=== PATIENT | male | born 1945 | race Caucasian/White ===

== ENCOUNTER 2021-12-13 03:39 | Emergency (ER) | payer MEDICARE ==
[~2021-12-13] VITALS: Ht 177.8 cm; Wt 106.7 kg
--- NOTE | 2021-12-13 03:59 | PHYS DOC ---
Past History Past Medical History: Anemia, CAD, COPD, Hypertension, Kidney Stones, Prostatitis Past Surgical History: Coronary Bypass Surgery General Adult EDM: Chief Complaint: FLANK PAIN HPI: HPI: ".. It not been a great week or two for me.. it started with Zoster..or shingles on the Rt,. side of my chest and abd... and now I am having a kidney stone here on Lt... It started hard tonight.. I ve had stones before.. I usually see Dr. Quezada at [facility] for my stones.." Patient is a 76 year old male who presents with above hx and complaints of Lt flank and abdomen pain which she relates his kidney stone pain. Patient also has shingles on his right flank and abdomen.. Patient normally follows with Dr. Cantu and [facility]. Patient does have plans to follow-up with Dr. Pendleton in the future because his primary care is moving.. Patient has longstanding oxygen dependent COPD. Patient is currently on 2 L oxygen continually. Patient is on chronic prednisone maintenance with slow tapers. Patient currently has tapered to 5 mg a day. Patient does have prostatic hypertrophic changes, prostate cancer tx with radioactive implants and is on daily Flomax.. Pt. has had pancreatitis in past. No recent travel. No significant ill contacts. Patient has had a flu vaccination this season. Has had COVID vaccination but not completed his second booster. Pt. has had pneumovax. At presentation rates his Lt flank pain as severe. Review of Systems: Review of Systems: Constitutional: Denies fever or chills Eyes: Denies change in visual acuity HENT: Denies nasal congestion or sore throat Respiratory: Chronically shortness of breath-O2 maintenance at 2 L currently. Cardiovascular: Denies chest pain or edema GI: Complains of left flank abdominal pain, nausea,. Complains of right flank abdomen pain, vomiting, bloody stools or diarrhea : Denies dysuria Musculoskeletal: Complains of left flank and right flank back pain . Integument: Complains of shingles on right flank Neurologic: Denies headache, focal weakness or sensory changes Endocrine: Denies polyuria or polydipsia Lymphatic: Denies swollen glands Psychiatric: Denies depression or anxiety Family History: Family History: Noncontributory to presentation Current Medications: Current Meds: See nursing for home meds Allergies: Allergies: Antibiotic allergy doxycycline Physical Exam: PE: Constitutional: In acute distress, non-toxic appearance. [] HENT: Normocephalic, atraumatic, bilateral external ears normal, oropharynx moist, no oral exudates, nose normal. [] Eyes: PERRLA, EOMI, conjunctiva normal, no discharge. Blue Neck: Normal range of motion, no tenderness, supple, no stridor. [Surgical scar left-sided neck. Cardiovascular: Tachycardia heart rate regular rhythm, no murmur. PMI to left. Bedside monitor shows a sinus rhythm. Does have occasional PACs and PVCs on monitor. Lungs & Thorax: Bilateral breath sounds equal apex with scattered wheezes on auscultation []. Has midline coronary artery bypass scar. Is on continuous oxygen at 2 L. Abdomen: Bowel sounds decreased, soft, right and left flank tenderness, no masses, no pulsatile masses. [] Patient has right flank zoster over dermatomes T3 and 4. Left flank pain that radiates to his groin Skin: Warm, dry, no erythema, zoster over right T3 and 4 dermatomes Back: Right and left flank tenderness, left flank CVA tenderness. [] Extremities: No tenderness, no cyanosis, no clubbing, ROM intact, no edema. Arthritic changes. No cording. Neurologic: Alert and oriented X 3, moves all extremities on request, has distal sensory,, no focal deficits noted. [] Psychologic: Affect anxious, judgement normal, mood normal. [] EKG: EKG: My interpretation EKG shows a sinus rhythm at 80 bpm. Does have occasional PACs. Does have contour changes. Anterior lateral leads. But no findings of acute STEMI with contralateral changes. Time of reading was approximately 438 hours [] Radiology/Procedures: Radiology/Procedures: [][address] [address] IMAGING REPORT Signed PATIENT: JACOB GUALLPA ACCOUNT: [id number] : 1945 LOCATION: ER AGE: 76 SEX: M EXAM STATUS: REG ER ORD. PHYSICIAN: CHUCKY HOWARD MD REASON: chest and abdomen pain, 'zoster, copd-hyposia and renal colic PROCEDURE: ACUTE ABDOMEN SERIES Study: XR ABDOMEN COMP ACUTE Indication: Chest and abdominal pain. Comparison: Same day CT. Findings: Status post median sternotomy. Surgical clips projecting at the left lower neck. Cerclage wire discontinuity. The cardiomediastinal silhouette is within normal limits for size. Symmetric central vasculature. Aortic calcific atherosclerosis. Emphysema with pleuroparenchymal scarring. Bronchiectasis. No pleural effusion, pneumothorax or lobar consolidation. Benign-appearing focus of sclerosis at the proximal left humerus. Diffuse osteopenia. Nonobstructive bowel gas pattern. Mild volume colonic stool burden. Prostate brachytherapy seeds. Extensive calcific atherosclerosis. Impression: 1. Nonobstructive bowel gas pattern. Small volume colonic stool burden. 2. Advanced emphysematous changes of the lungs with pleuroparenchymal scarring and bronchiectasis. No acute radiographic abnormality of the chest. 3. Diffuse osteopenia and extensive vascular calcifications. Electronically signed by: GUY ANTON MD (12/13/2021 5:45 AM) [facility] DICTATED AND SIGNED BY: GUY ANTON MD DATE: 12/13/21542 CC: CHUCKY HOWARD MD; PCP,UNKNOWN ~ PATIENT: JACOB GUALLPA ACCOUNT: [id number] : 1945 LOCATION: ER AGE: 76 SEX: M EXAM STATUS: REG ER ORD. PHYSICIAN: CHUCKY HOWARD MD REASON: renal colic Lt PROCEDURE: CT ABDOMEN PELVIS WO CONTRAST Study: CT abdomen/pelvis without intravenous contrast Indication: Left renal colic. Comparison: None. Technique: Helical CT imaging performed of the abdomen and pelvis without the use of intravenous contrast. Sagittal and coronal reformats were obtained. One or more of the following individualized dose reduction techniques were utilized for this examination: 1. Automated exposure control 2. Adjustment of the mA and/or kV according to patient size 3. Use of iterative reconstruction technique. Findings: Inherently limited evaluation without intravenous contrast. Calcific coronary artery disease. Tree-in-bud nodularity at the lower lungs background of bronchiectasis and distal airway opacification. Background chronic parenchymal changes. No discrete liver lesion. Within normal limits gallbladder and biliary tree. Partially atrophic pancreas. The spleen is within normal limits for size. No adrenal gland mass. Low-attenuation focus at the lower pole of the right kidney measuring simple cyst density. Millimetric nonobstructing intrarenal stone at the upper aspect of the left kidney. No hydronephrosis on the right or left. Within normal limits bladder. Brachytherapy seeds within an enlarge prostate that measures 5.2 cm transverse. Mild volume colonic stool burden. A few diverticuli. Multilevel cecum extending up towards the right upper quadrant. The appendix is not well-visualized. Nonobstructed small bowel. Limited assessment of the stomach on account of underdistention. No gastric wall emphysema. Extensive calcific atherosclerosis. Short segment mild aneurysmal dilatation of the infrarenal abdominal aorta measuring 3 cm AP. Common iliac artery stents. Partially imaged surgical changes along the proximal superficial femoral arteries. There may be a relevant SFA stenosis proximally on the left, image 123 series 4. No lymphadenopathy. No free fluid or pneumoperitoneum. Very small fat-containing umbilical hernia. Scattered chronic osseous findings to include borderline grade 2 anterolisthesis of L5 on S1 in the setting of chronic bilateral pars defect. Expectedly there is severe neural foraminal stenosis at this level. Osteopenia. Impression: 1. Millimetric nonobstructing intrarenal stone at the upper pole of the left kidney. No hydronephrosis on the right or left to help explain reported renal colic. 2. Advanced chronic parenchymal changes at the lower lungs. Tree-in-bud nodularity, bronchiectasis and bilateral lower lobe distal airway opacification. The findings could be related to chronic aspiration or bronchitis. 3. Severe calcific atherosclerosis. Short segment mild aneurysmal dilatation of the infrarenal abdominal aorta measuring up to 3 cm AP. Possible clinically relevant stenosis at the proximal left SFA. 4. Additional chronic observations discussed in the body of the report to include calcific coronary artery disease and spondylolysis with spondylolisthesis at L5-S1. Electronically signed by: GUY ANTON MD (12/13/2021 5:43 AM) [facility] DICTATED AND SIGNED BY: GUY ANTON MD DATE: 12/13/21 0534 CC: CHUCKY HOWARD MD; PCP,UNKNOWN ~ Heart Score: C/O Chest Pain: Yes HEART Score for Chest Pain: HEART Score for Chest Pain Response (Comments) Value History Moderately Suspicious 1 ECG Nonspecific Repolarizatio 1 Age > 65 2 Risk Factors 1 or 2 Risk Factors 1 Troponin < Normal Limit 0 Total 5 Risk Factors: Risk Factors: DM, Current or recent (<one month) smoker, HTN, HLP, family history of CAD, obesity. Risk Scores: Score 0 - 3: 2.5% MACE over next 6 weeks - Discharge Home Score 4 - 6: 20.3% MACE over next 6 weeks - Admit for Clinical Observation Score 7 - 10: 72.7% MACE over next 6 weeks - Early Invasive Strategies Course & Med Decision Making: Course & Med Decision Making Pertinent Labs and Imaging studies reviewed. (See chart for details) Patient reports all of a sudden his left flank pain resolved. Thinks he has passed a stone this was approximately 0600 hrs. Patient requesting discharge home. Patient will be discharged home with prescription for Zofran 8 up to 4 times a day for active nausea vomiting. Take Tylenol and ibuprofen for pain. For marked pain may take Vicoprofen up to 4 times a day. Patient encouraged to follow-up with and his new primary Dr Oleary. Review ED work-up with primary care. Recommend patient continue his herpes zoster medication. Made need to be on it longer than normally prescribed because of his immu nosuppression from the steroids. Continue his Flomax. Push fluids. Return if any concerns. Keep follow up with primary call for an appointment today. Return if any concerns. Impression: 1. Lt renal colic 2. Right herpetic zoster Dermatone T 3-4 3. COPD oxygen Dependent at 2 lit- Chronic steroid dependence 4. Anemia 12.8 Hgb 5. History of prostate cancer-status post radio active implants [] Mellissa Disclaimer: Mellissa Disclaimer: This electronic medical record was generated, in whole or in part, using a voice recognition dictation system. Departure Departure: Referrals: PCP,UNKNOWN (PCP) Scripts Ondansetron (ONDANSETRON ODT) 8 Mg Tab.rapdis 8 MG PO QIDPRN PRN for NAUSEA/VOMITING, #30 TAB Prov: CHUCKY HOWARD MD 12/13/21 Hydrocodone/Ibuprofen (HYDROCODONE-IBUPROFEN 7.5-200 ) 1 Each Tablet 1 TAB PO PRN Q6HRS PRN for PAIN, #30 TAB 0 Refills Prov: CHUCKY HOWARD MD 12/13/21 Dragon Disclaimer This chart was dictated in whole or in part using Voice Recognition software in a busy, high-work load, and often noisy Emergency Department environment. It may contain unintended and wholly unrecognized errors or omissions. CHUCKY HOWARD MD Dec 13, 2021 03:59
[2021-12-13 04:52] LABS: BASO % 1 % (0-3); EOS # 0.1 x10^3/uL (0.0-0.7); EOS % 1 % (0-3); HEMATOCRIT 38.5 % (39.0-53.0); HEMOGLOBIN 12.8 g/dL (13.0-17.5); LYMPH # 1.3 x10^3/uL (1.0-4.8); LYMPH % 15 % (24-48); MEAN CORPUSCULAR HEMOGLOBIN 32 pg (25-35); MEAN CORPUSCULAR HGB CONC 33 g/dL (31-37); MEAN CORPUSCULAR VOLUME 97 fL (79-100); MONO # 0.8 x10^3/uL (0.0-1.1); MONO % 9 % (0-9); NEUT # 6.8 x10^3uL (1.8-7.7); NEUT % 75 % (31-73); PLATELET COUNT 173 x10^3/uL (140-400); RED BLOOD COUNT 3.99 x10^6/uL (4.30-5.70); RED CELL DISTRIBUTION WIDTH 13.9 % (11.5-14.5); WHITE BLOOD COUNT 9.2 x10^3/uL (4.0-11.0)
--- NOTE | 2021-12-13 04:54 | EKG ---
[address] [address] Test Date: 2021-12-13 Test Time: 04:38:51 Pat Name: JACOB GUALLPA Department: Room: Gender: M Academic Support Coordinator: : 1945 Requested By: CHUCKY HOWARD Order Number: [id number] Reading MD: Mohan Arita Measurements Intervals [place] Rate: 80 P: 51 TN: 140 QRS: 34 QRSD: 78 T: 31 QT: 344 QTc: 400 Interpretive Statements SINUS RHYTHM ATRIAL PREMATURE COMPLEX(ES) MILD NON SPECIFIC ST CHANGES Electronically Signed On 12-15-2021 17:07:29 CDT by Mohan Arita
[2021-12-13] MEDS ORDERED: ONDANSETRON PF 4 MG/2 ML VIAL. IVP ONE (05:00)
[2021-12-13] MEDS ORDERED: IV RINGERS SOLUTION,LACTATED 1,000 ML IV SCH (05:00)
[2021-12-13] MEDS ORDERED: MORPHINE SULFATE 10 MG/ML SYRINGE. SQ PRN (05:00)
[2021-12-13] MEDS ORDERED: FAMOTIDINE 20 MG/2 ML VIAL IVP ONE (05:00)
[2021-12-13] MEDS ORDERED: KETOROLAC 30 MG/ML VIAL. IVP ONE (05:00)
[2021-12-13 05:01] LABS: CALCIUM 8.3 mg/dL (8.5-10.1); CREATININE 1.3 mg/dL (0.7-1.3); GFR 53.4; POTASSIUM 4.8 mmol/L (3.5-5.1)
[2021-12-13 05:02] LABS: AMPHETAMINE/METHAMPHETAMINE NEG (NEG); BARBITURATES NEG (NEG); BENZODIAZEPINES NEG (NEG); CANNABINOIDS NEG (NEG); COCAINE NEG (NEG); METHADONE NEG (NEG); PHENCYCLIDINE NEG (NEG)
[2021-12-13 05:14] LABS: CLARITY,URINE CLEAR; COLOR,URINE YELLOW; GLUCOSE,URINE NEG (NEG)
[2021-12-13 05:15] LABS: BACTERIA,URINE FEW /HPF (0-FEW); NITRITE,URINE NEG (NEG); SQUAMOUS EPITHELIAL CELL,UR FEW /LPF; UROBILINOGEN,URINE 0.2 mg/dL (0.2 mg/dL); WBC,URINE OCC /HPF (0-4)
[2021-12-13 05:19] LABS: ALBUMIN 3.1 g/dL (3.4-5.0); DIRECT BILIRUBIN 0.1 mg/dL (0.0-0.2); TOTAL BILIRUBIN 0.4 mg/dL (0.2-1.0); TOTAL PROTEIN 6.2 g/dL (6.4-8.2)
--- NOTE | 2021-12-13 05:45 | RAD ---
Study: CT abdomen/pelvis without intravenous contrast Indication: Left renal colic. Comparison: None. Technique: Helical CT imaging performed of the abdomen and pelvis without the use of intravenous cont rast. Sagittal and coronal reformats were obtained. One or more of the following individualized dose reduction techniques were utilized for this examinat ion: 1. Automated exposure control 2. Adjustment of the mA and/or kV according to patient size 3. Use of iterative reconstruction technique. Findings: Inherently limited evaluation without intravenous contrast. Calcific coronary artery disease. Tree-in-bud nodularity at the lower lungs background of bronchiecta sis and distal airway opacification. Background chronic parenchymal changes. No discrete liver lesion. Within normal limits gallbladder and biliary tree. Partially atrophic pancr eas. The spleen is within normal limits for size. No adrenal gland mass. Low-attenuation focus at the lower pole of the right kidney measuring simple cyst density. Millimetri c nonobstructing intrarenal stone at the upper aspect of the left kidney. No hydronephrosis on the ri ght or left. Within normal limits bladder. Brachytherapy seeds within an enlarge prostate that measur es 5.2 cm transverse. Mild volume colonic stool burden. A few diverticuli. Multilevel cecum extending up towards the right upper quadrant. The appendix is not well-visualized. Nonobstructed small bowel. Limited assessment of the stomach on account of underdistention. No gastric wall emphysema. Extensive calcific atherosclerosis. Short segment mild aneurysmal dilatation of the infrarenal abdomi nal aorta measuring 3 cm AP. Common iliac artery stents. Partially imaged surgical changes along the proximal superficial femoral arteries. There may be a relevant SFA stenosis proximally on the left, i mage 123 series 4. No lymphadenopathy. No free fluid or pneumoperitoneum. Very small fat-containing umbilical hernia. Scattered chronic osseous findings to include borderline grade 2 anterolisthesis of L5 on S1 in the s etting of chronic bilateral pars defect. Expectedly there is severe neural foraminal stenosis at this level. Osteopenia. Impression: 1. Millimetric nonobstructing intrarenal stone at the upper pole of the left kidney. No hydronephros is on the right or left to help explain reported renal colic. 2. Advanced chronic parenchymal changes at the lower lungs. Tree-in-bud nodularity, bronchiectasis a nd bilateral lower lobe distal airway opacification. The findings could be related to chronic aspirat ion or bronchitis. 3. Severe calcific atherosclerosis. Short segment mild aneurysmal dilatation of the infrarenal abdom inal aorta measuring up to 3 cm AP. Possible clinically relevant stenosis at the proximal left SFA. 4. Additional chronic observations discussed in the body of the report to include calcific coronary artery disease and spondylolysis with spondylolisthesis at L5-S1. Electronically signed by: GUY ANTON MD (12/13/2021 5:43 AM) [facility]
--- NOTE | 2021-12-13 05:48 | RAD ---
Study: XR ABDOMEN COMP ACUTE Indication: Chest and abdominal pain. Comparison: Same day CT. Findings: Status post median sternotomy. Surgical clips projecting at the left lower neck. Cerclage wire discon tinuity. The cardiomediastinal silhouette is within normal limits for size. Symmetric central vascula ture. Aortic calcific atherosclerosis. Emphysema with pleuroparenchymal scarring. Bronchiectasis. No pleural effusion, pneumothorax or lobar consolidation. Benign-appearing focus of sclerosis at the proximal left humerus. Diffuse osteopenia. Nonobstructive bowel gas pattern. Mild volume colonic stool burden. Prostate brachytherapy seeds. Ext ensive calcific atherosclerosis. Impression: 1. Nonobstructive bowel gas pattern. Small volume colonic stool burden. 2. Advanced emphysematous changes of the lungs with pleuroparenchymal scarring and bronchiectasis. No acute radiographic abnormality of the chest. 3. Diffuse osteopenia and extensive vascular calcifications. Electronically signed by: GUY ANTON MD (12/13/2021 5:45 AM) [facility]
[2021-12-13] MEDS ORDERED: HYDR-1179 PO (06:03)
[2021-12-13] MEDS ORDERED: ONDA8TAB15 PO (06:03)
[2021-12-13 06:30] VITALS: BP 135/86
== END 2021-12-13 06:25 | disposition home or self-care (01) ==
LOC: ER 03:39
DX: N23 Unspecified renal colic (principal); B02.9 Zoster without complications; J44.9 Chronic obstructive pulmonary disease, unspecified; D64.9 Anemia, unspecified; I25.810 Atherosclerosis of coronary artery bypass graft(s) without angina pectoris; I10 Essential (primary) hypertension; Z99.81 Dependence on supplemental oxygen; Z79.52 Long term (current) use of systemic steroids; Z85.46 Personal history of malignant neoplasm of prostate; Z86.2 Personal history of diseases of the blood and blood-forming organs and certain disorders involving the immune mechanism; Z87.442 Personal history of urinary calculi; Z88.1 Allergy status to other antibiotic agents
CPT/HCPCS: 36415; 74022; 74176; 80048; 80076; 80307; 81001; 82553; 83690; 84484; 85025; 93005; 96361; 96374; 96375; 99285; J1885; J2405; J3490; J7120